=== PATIENT | female | born 1970 | race Caucasian/White ===

== ENCOUNTER 2023-03-24 13:38 | Emergency (ER) | payer BC ==
--- NOTE | 2023-03-24 14:21 | ED Physician Documentation ---
History of Present Illness - Stated complaint Stated Complaint: DIZZINESS,LIGHTHEADED - Chief complaint Chief Complaint: Neuro - Additonal information Additional information: 53-year-old female presents to the emergency department with a chief complaint of feeling dizzy, off balance and lightheaded. It occurred suddenly when standing. She has a history of a previous stroke while living in [place] about 1 year ago. She reports to me that it was due to severe uncontrolled hypertension. As a result of that stroke she has right-sided deficits. She is a current 1 pack/day tobacco user. Reports compliance with her atorvastatin, hydrochlorothiazide and lisinopril. She also takes a daily aspirin though inconsistent with use. On presentation in the emergency department she is alert and well-appearing. Her NIHSS at the time of initial evaluation is 0. She is denying any chest pain or shortness of air. Review of Systems Constitutional: denies: Fever, Chills Cardiac: reports: Other (light headed). denies: Chest pain / pressure, Palpitations Respiratory: denies: Dyspnea, Cough GI: reports: Reviewed and negative : reports: Reviewed and negative Skin: reports: Reviewed and negative Musculoskeletal: reports: Reviewed and negative Neurologic: reports: Focal weakness (mild right arm/right leg weakness at baseline). denies: Generalized weakness, Confused, Headache, Head injury, LOC PD PAST MEDICAL HISTORY - Allergies Allergies/Adverse Reactions: Allergies Allergy/AdvReac Type Severity Reaction Status Date / Time No Known Drug Allergies Allergy Verified 03/24/23 13:45 PD ED PE NORMAL - General General: Alert and oriented X 3, No acute distress. No: Well devel oped/nourished (markedly obese) - HEENT HEENT: EOMI (no nystagmus), Moist mucous membranes - Neck Neck: Supple, no meningeal sign - Cardiac Cardiac: RRR, No murmur - Respiratory Respiratory: No respiratory distress, Clear bilaterally - Abdomen Abdomen: Normal bowel sounds, Soft, Non tender - Back Back: No CVA TTP, No spinal TTP - Derm Derm: Normal color - Extremities Extremities: No deformity - Neuro Neuro: Alert and oriented X 3, bisque grader 2-12 intact Eye Opening: Spontaneous Motor: Obeys Commands Verbal: Oriented GCS Score: 15 Results - Vitals Vitals: Vital Signs - 24 hr 03/24/23 03/24/23 03/24/23 13:45 14:39 14:55 Temperature 36.5 C Heart Rate 70 69 Heart Rate [ 70 Sitting] Heart Rate [ 80 Standing] Heart Rate [ 60 Supine] Respiratory 16 24 Rate Blood Pressure 117/65 92/65 Blood Pressure 112/59 L [Sitting] Blood Pressure 109/80 [Standing] Blood Pressure 94/48 L [Supine] O2 Saturation 96 99 Oxygen O2 Source Room air - EKG (time done) 1422 EKG releavant findings:: EKG personally interpreted by author of this note. Relevant findings are: Rate: Rate (enter#) (62) Rhythm: NSR Rossiter: Normal Intervals: Normal NE QRS: Low voltage Ischemia: Normal ST segments Compare to prior EKG: Old EKG unavailable Computer interpretation: Agree with computer - Labs Labs: Laboratory Tests 03/24/23 03/24/23 14:36 14:36 WBC 8.7 RBC 4.94 Hgb 15.3 Hct 46.5 MCV 94.1 MCH 31.0 MCHC 32.9 RDW 13.2 Plt Count 365 MPV 9.9 Neut # (Auto) 6.0 Lymph # (Auto) 1.8 [place] # (Auto) 0.7 Eos # (Auto) 0.1 Baso # (Auto) 0.0 Absolute Nucleated RBC 0.00 Nucleated RBC % 0.0 Sodium 136 Potassium 3.7 Chloride 102 Carbon Dioxide 28 Anion Gap 6.0 BUN 19 Creatinine 1.2 Estimated GFR (MDRD) 47 L Glucose 94 Calcium 9.8 Total Bilirubin 0.4 AST 22 ALT 17 Alkaline Phosphatase 71 Troponin I High Sens 3.1 Total Protein 6.9 Albumin 4.1 Globulin 2.8 Albumin/Globulin Ratio 1.5 Lipase 21 - Rads (name of study) cxr Relevant Findings:: Final report received (No acute cardiopulmonary process) angio head/neck Relevant Findings:: Final report received (Unremarkable CT angio of the head and neck. No evidence of large vessel occlusion, aneurysm or vascular malformation.) Ct head Relevant Findings:: Final report received (Old left basal ganglia lacunar infarction) PD Medical Decision Making - ED course Complexity details: reviewed results, re-evaluated patient, d/w patient ED course: 53-year-old female presented to the emergency department for evaluation of sudden severe lightheaded and dizziness. She felt that she was having increased weakness on her right side. Did have a history of a stroke 1 year ago while living in [place]. Reports to me it was due to high blood pressure. Presentation to the emergency department she was alert and well-appearing. Her blood pressure however was lower than would be expected given her history initially 94/48. She was without fever or tachycardia. Her NIHSS was 0 on exam. But given the preceding history we did order angios of the head and neck. I also ordered an EKG CBC and electrolytes. Per my interpretation no acute electrolyte derangement or abnormality in the CBC. CT angios were completed and pending however the patient chose to elope from the emergency department if she wanted to have a cigarette. We had evaluated her orthostatic blood pressures here in the emergency department and though she was not orthostatic per se her blood pressures were lower than would be expected given her age and condition. I suspect some of the symptoms are likely related to hypotension. Because the patient could not be convinced to stay I encouraged her to hold her dose of lisinopril over the next few days and recheck her blood pressures at home. The results of the angios are pending though I do not anticipate they will show any acute abnormalities. If they are grossly abnormal patient will be notified to return to the ER. She did leave AGAINST MEDICAL ADVICE. 1715: CT angio of the head and neck has been resulted and shows no acute vascular malformations aneurysm dissection or occlusion. CT of the head without contrast showed an old left basal ganglier infarct consistent with the patient's right-sided symptoms that have been persistent for more than a year after her stroke. At this time she remains discharged AGAINST MEDICAL ADVICE. She was notified that she could return at any time should she choose to without repercussion or questions asked. Departure - Departure Disposition: 07 Against Medical Advice Clinical Impression: Light headed, History of stroke Forms: PCP List Discharge Date/Time: 03/24/23 16:55 NIHSS - Time Time: 14:15 - Level of Consciousness Level of consciousness: (0) Alert, Keenly responsive LOC Questions: (0) Answers both Q's correct LOC Commands: (0) Performs both correctly - Gaze Best Gaze: (0) Normal - Visual Visual: (0) No loss - Facial Palsy Facial Palsy: (0) Normal, symmetrical movement - Motor Arms (both separate) Motor Arm (right): (0) No drift Motor Arm (left): (0) No drift - Motor Legs (both separate) Motor Leg (right): (0) No drift Motor Leg (left): (0) No drift - Limb Ataxia Limb Ataxia: (0) Absent - Sensory Sensory: (0) Normal - Best Language Best Language: (0) No aphasia - Dysarthria Dysarthria: (0) Normal - Extinction and Inattention (formally neg Extinction and inattention: (0) No abnormality - Total Score/Results Total Score/Result: 0
[2023-03-24 14:47] VITALS: O2SAT 99
[2023-03-24 14:49] LABS: BASOPHILS % (AUTO) 0.5 %; EOSINOPHILS # (AUTO) 0.1 10^3/uL (0.0-0.7); HCT - HEMATOCRIT 46.5 % (37.0-47.0); HGB - HEMOGLOBIN 15.3 g/dL (12.0-16.0); LYMPHOCYTES # (AUTO) 1.8 10^3/uL (1.5-3.5); LYMPHOCYTES % (AUTO) 20.7 %; MEAN CORPUSCULAR HGB CONC 32.9 g/dL (32.0-36.0); MEAN CORPUSCULAR VOLUME 94.1 fL (81.0-99.0); MEAN PLATELET VOLUME 9.9 fL (7.9-10.8); MONOCYTES # (AUTO) 0.7 10^3/uL (0.0-1.0); MONOCYTES % (AUTO) 7.9 %; NEUTROPHILS % (AUTO) 69.6 %; PLT - PLATELET COUNT 365 10^3/uL (130-450); RED BLOOD COUNT 4.94 10^6/uL (4.20-5.40); RED CELL DISTRIBUTION WIDTH 13.2 % (12.0-15.0); WHITE BLOOD COUNT 8.7 x10^3/uL (4.8-10.8)
[2023-03-24 14:57] VITALS: BP 94/48
--- NOTE | 2023-03-24 15:17 | XRAY Report ---
PROCEDURE: Chest 1 View X-Ray INDICATIONS: Chest Pain TECHNIQUE: One view of the chest was acquired. COMPARISON: None. FINDINGS: Surgical changes and devices: None. Lungs and pleura: No pleural effusions or pneumothorax. Lungs are clear. Mediastinum: Mediastinal contours appear normal. Heart size is normal. Bones and chest wall: No suspicious bony lesions. Overlying soft tissues appear unremarkable. IMPRESSION: No acute cardiopulmonary process. Reviewed by: Otto Looney on 03/24/2023 3:15 PM PDT Approved by: Otto Looney on 03/24/2023 3:15 PM PDT Station ID: [id number]
[2023-03-24 15:18] LABS: TROPONIN I HIGH SENSITIVITY 3.1 ng/L (2.3-14.8)
[2023-03-24] MEDS ORDERED: SODIUM CHLORIDE 0.9% 1,000 ML IV STA (15:21)
[2023-03-24 15:29] LABS: ALBUMIN 4.1 g/dL (3.2-5.5); ALBUMIN/GLOBULIN RATIO 1.5 (1.0-2.2); BILIRUBIN,TOTAL 0.4 mg/dL (0.2-1.0); CALCIUM 9.8 mg/dL (8.5-10.3); CREATININE 1.2 mg/dL (0.6-1.3); POTASSIUM 3.7 mmol/L (3.5-4.5); TOTAL PROTEIN 6.9 g/dL (6.4-8.9)
--- NOTE | 2023-03-24 17:13 | CT Report ---
PROCEDURE: CT Angio Head/Neck INDICATIONS: dizzy, light headed; previous cva with r deficiits TECHNIQUE: Helical axial CT of the head and neck was obtained during the arterial phase of a intrave nous contrast injection utilizing an angiographic protocol. Multiplanar traditional and MIP reformat s were also obtained. COMPLIANCE STATEMENTS: Any estimate of proximal ICA stenosis was calculated using NASCET guidelines. Dose reduction techniques included either automated exposure control or adjustment of exposure sharri eters. COMPARISON: None. FINDINGS: Image quality: Study limited by motion artifact particularly in the skull base. Patient shoulders cre atse beam hardening artifact limiting assessment of the proximal vessels Cerebral CT Angiogram: Internal carotid arteries: No acute findings. Intracranial ICA are patent with no significant steno sis. No occlusion. No aneurysm. Anterior cerebral arteries: Unremarkable. No significant stenosis. No occlusion. No aneurysm. Middle cerebral arteries: Unremarkable. No significant stenosis. No occlusion. No aneurysm. 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 The P2 segment is supplied by a widely patent posterior communicating artery. Remainder of the distal vasculature unremarkable. Basilar artery: Unremarkable. No significant stenosis. No occlusion. No aneurysm. Vertebral arteries: Unremarkable as visualized. Dural venous sinuses: Unremarkable given phase of enhancement. Other: Arterial phase appearance of the brain parenchyma is unremarkable. Neck CT Angiogram: Internal carotid arteries: Unremarkable. No significant stenosis. No dissection or occlusion. Common carotid arteries: Unremarkable. No significant stenosis. No dissection or occlusion. External carotid arteries: Unremarkable. No occlusion. Vertebral arteries: Unremarkable. No significant stenosis. No dissection or occlusion. Aortic Arch and Mediastinum: Partially visualized aortic arch unremarkable without evidence of aneury sm. Origins of the great vessels unremarkable. Other: Arterial phase soft tissues of the neck are unremarkable. Degenerative disc disease and arthro hayder in the cervical spine. IMPRESSION: Unremarkable CT angiogram of the head and neck. No evidence of large vessel occlusion, aneurysm or va scular malformation Study is limited as above Reviewed by: Norm Davis MD on 03/24/2023 4:11 PM AKERIC Approved by: Norm Davis MD on 03/24/2023 4:11 PM AKDT Station ID: [id number]
--- NOTE | 2023-03-24 17:14 | CT Report ---
PROCEDURE: CT brain without contrast INDICATIONS: DIZZY, LIGHT HEADED; PREVIOUSE CVA W/R DEFICITS TECHNIQUE: Helical axial CT of the brain was obtained without contrast and reformatted in multiple p lanes. Radiation dose reduction was achieved using automated exposure control or adjustment of mA and /or kV according to patient size. COMPARISON: None FINDINGS: CSF spaces: Ventricles are appropriate in size and position. No hydrocephalus. Basal cisterns unre markable. Brain: No midline shift. No intracranial masses or hemorrhage. Carroll-white matter interface is norm al. Old infarct noted in the left caudate with volume loss Skull and face: Calvarium and skull base are unremarkable without suspicious lesion. Sinuses: Visualized sinuses and mastoids are clear. IMPRESSION: Old left basal ganglia lacunar infarct Reviewed by: Norm Davis MD on 03/24/2023 4:12 PM AKDT Approved by: Norm Davis MD on 03/24/2023 4:12 PM AKDT Station ID: [id number]
[2023-03-25] MEDS ORDERED: IOVERSOL 320 100 ML VIAL IVP ONE (00:27)
== END 2023-03-24 16:55 | disposition left against medical advice (07) ==
LOC: ED 13:38
DX: R42 Dizziness and giddiness (principal); I69.351 Hemiplegia and hemiparesis following cerebral infarction affecting right dominant side; F17.200 Nicotine dependence, unspecified, uncomplicated; Z53.29 Procedure and treatment not carried out because of patient's decision for other reasons
CPT/HCPCS: 36415; 80053; 83690; 84484; 85025; 93005; 99284

== ENCOUNTER 2023-04-15 12:20 | Emergency (ER) | payer BC, MEDICAID ==
--- NOTE | 2023-04-15 13:16 | XRAY Report ---
PROCEDURE: Hip w/Pelvis 2-3V RT INDICATIONS: pain TECHNIQUE: AP pelvis with lateral view(s) of the right hip(s). COMPARISON: None. FINDINGS: Bones: No fractures or dislocations. No suspicious bony lesions. Mild right hip osteoarthritis with osseous hypertrophy. Lower lumbar spine degenerative disc disease and facet arthropathy. Soft tissues: No suspicious soft tissue calcifications or masses. IMPRESSION: No fracture. No acute osseous lesion. If symptoms and/or clinical concern for pathology persists, fur ther assessment with repeat plain film radiographs (7-10 days) or advanced imaging (CT, MR, bone scan ) should be considered. Mild right hip osteoarthritis. Reviewed by: Avril Abdi MD, PhD on 04/15/2023 1:14 PM PDT Approved by: Avril Abdi MD, PhD on 04/15/2023 1:14 PM PDT Station ID: [id number]
--- NOTE | 2023-04-15 13:19 | ED Physician Documentation ---
PD HPI BACK PAIN - Stated complaint Stated Complaint: RT HIP PX/ - Chief complaint Chief Complaint: Ext Problem - History obtained from History obtained from: Patient - Additional information Additional information: Patient is a 53-year-old female presenting for evaluation of a right lower back pain for the past 1 week that is worse when she first wakes up in the morning as well as at night. She denies any known injury or trauma but has been limping Due to the pain. She has been trying ibuprofen without any improvement. Denies radiation of the pain elsewhere. Denies bowel or bladder incontinence, saddle anesthesia. Denies blood thinner use or procedures or injections to her back. No numbness or tingling. Review of Systems Constitutional: denies: Fever Cardiac: denies: Chest pain / pressure Respiratory: denies: Dyspnea GI: denies: Abdominal Pain, Vomiting : denies: Dysuria, Frequency, Incontinent Musculoskeletal: reports: Back pain Neurologic: denies: Head injury PD PAST MEDICAL HISTORY - Past Medical History Neuro: CVA - Present Medications Home Medications: Ambulatory Orders Medication Instructions Recorded Confirmed Atorvastatin [Lipitor] 20 mg PO DAILY 04/15/23 04/15/23 Cyclobenzaprine [Flexeril] 10 mg PO TID PRN #20 tablet 04/15/23 Lidocaine Patch 5% [Lidoderm Patch] 1 patch TOP DAILY PRN #10 patch 04/15/23 Lisinopril [Zestril] 20 mg PO DAILY 04/15/23 04/15/23 - Allergies Allergies/Adverse Reactions: Allergies Allergy/AdvReac Type Severity Reaction Status Date / Time No Known Drug Allergies Allergy Verified 04/15/23 12:43 - Social History Does the pt smoke?: No Smoking Status: Never smoker PD ED PE NORMAL - General General: Alert and oriented X 3, No acute distress, Well developed/nourished - HEENT HEENT: Atraumatic, Moist mucous membranes, Pharynx benign - Neck Neck: Supple, no meningeal sign - Cardiac Cardiac: RRR, No murmur, Strong equal pulses - Respiratory Respiratory: No respiratory distress - Back Back: No spinal TTP, Other (Mild left lower lumbar tenderness to palpation, no deformities or bruising) - Derm Derm: Warm and dry - Extremities Extremities: No deformity, No tenderness to palpate, Normal ROM s pain - Neuro Neuro: Alert and oriented X 3, No motor deficit, No sensory deficit, Normal speech Results - Vitals Vitals: Vital Signs - 24 hr 04/15/23 04/15/23 12:33 13:32 Temperature 36.2 C L Heart Rate 88 80 Respiratory 18 20 Rate Blood Pressure 156/101 H 148/100 H O2 Saturation 95 99 Oxygen O2 Source Room air PD Medical Decision Making - ED course Complexity details: reviewed results, re-evaluated patient, d/w patient ED course: Patient is a 53-year-old female presenting for evaluation of right lower back pain. No recent injuries or falls. lens matcher had requested a hip x-ray as patient was limping. I did place a hip x-ray but once patient was able to be examined it appears that her pain is more in the lower back than truly in the hip. Her hip is negative for fracture dislocation but does show some osteoarthritis. She does have an area of point tenderness to the lower back. No symptoms to suggest cauda equina. It no symptoms to suggest pyelonephritis, UTI, kidney stone. Discussed trial of supportive care including lidocaine patches and muscle relaxers. Patient counseled on need for close follow-up with PCP as well as concerning symptoms to return for. Departure - Departure Disposition: 01 Home, Self Care Clinical Impression: Low back strain Condition: Stable Instructions: ED Sprain Strain Lumbar Prescriptions: Cyclobenzaprine [Flexeril] 10 mg PO TID PRN #20 tablet PRN Reason: Spasms Lidocaine Patch 5% [Lidoderm Patch] 1 patch TOP DAILY PRN #10 patch PRN Reason: pain Comments: You were evaluated for right lower back pain. As you are limping a right hip x- ray was performed which shows no broken or out of place bones but you do have mild osteoarthritis. I sent prescriptions to [facility] to help with managing your symptoms including lidocaine patches and a muscle relaxer. It is imperative that you establish care with a primary care provider, not only for follow-up for this condition but also for your underlying medical conditions. Please return to the emergency department with any worsening symptoms. Forms: PCP List Discharge Date/Time: 04/15/23 13:33
[2023-04-15 13:37] VITALS: BP 148/100; O2SAT 99
== END 2023-04-15 13:33 | disposition home or self-care (01) ==
LOC: ED 12:20
DX: S39.012A Strain of muscle, fascia and tendon of lower back, initial encounter (principal); X58.XXXA Exposure to other specified factors, initial encounter; M16.11 Unilateral primary osteoarthritis, right hip
CPT/HCPCS: 99283

== ENCOUNTER 2024-04-03 14:55 | Outpatient (CLI) | payer OTHER ==
--- NOTE | 2024-04-03 15:56 | SLEEP CARE CONSULTATION ---
Information from patient questionnaire entered by Chad Mcbride. I have reviewed and concur with the information entered by Chad Mcbride. This document represents the service I personally performed and the decisions made by me, Obey Wood MD, [facility]. History of Present Illness Service Date and Time: 04/03/2024 1455 Reason for Visit: New patient Chief Complaint: reports: Unrefreshed sleep, Snoring, Observed pauses in breathing, Frequent awakenings at night Date of Onset: Over 1 year Usual bedtime: 8 PM Time it takes to fall asleep: 15 - 20 mins Snores at night: Yes Observed to quit breathing while asleep: Yes Sleeps alone due to snoring: No (but wants to) Number of times waking at night: 3 - 4 times Reasons for waking at night: reports: Bathroom, Other (Unknown reason) Toss, Turn, or Twitch while sleeping: Yes Recalls having dreams: No Usually gets out of bed at: 6 AM Feels refreshed in the morning: No Morning headache: No Sleepy or fatigued during the day: Yes Ever fallen asleep while driving: No Takes day naps: No Prior sleep studies: Yes Year and Where: 12/29/22 [facility] in [place] Additional HPI information: I have the pleasure of seeing Ms. Evans today regarding the possibility of her having obstructive sleep apnea. As you know, she is a 54-year-old lady who complains of frequent awakenings, unrefreshed sleep, loud snore, and observed apneas. She had a sleep study last year in [place] but was told that the study was inconclusive and she should have another one. The patient tells me that she normally goes to bed around 8 pm, and it takes her approximately 15 - 20 minutes to fall asleep. She has been told that she snores loudly and irregularly at night. She has also been observed to stop breathing in her sleep. She can recall waking up on the average of 3 - 4 times during the night. Most of the time she wakes up because of unknown reason. She has awakened occasionally because of her own snoring, choking, and having to gasp for air. There is a lot of tossing and turning in her sleep. She reports somniloquy (sleep talking) but not somnambulism (sleep walking). Generally, there is no recollection of dreams. In the morning she usually gets up out of bed around 6 a.m. not feeling refreshed nor rested. She usually does not have a morning headache. During the day she complains of feeling sleepy and fatigued. Her score on [place] Sleepiness Scale is 11 out of 24. She never has fallen asleep while driving nor has had any accident due to sleepiness. She usually does not take naps during the day. Upon falling asleep during the day she denies having vivid dreams. She has never had sleep paralysis, experienced cataplexy or symptoms of restless leg syndrome. She denies having impaired concentration during the day. - Parasomnia Symptoms Ever been unable to move upon waking from sleep: No Walks in sleep: No Talks in sleep: Yes Ever acted out dreams in sleep: No Ever felt weak in the knees when startled or emotional: No Bothered by creepy, crawly, restless sensations in legs: No Problems with memory or concentration: No Subjective Initial [place] Sleepiness Scale score: 11 (04/03/24) Past Medical History Past Medical History: reports: Hypertension, Stroke (I had a stroke 2 years ago. Ever since I have been on meds- Losartan Potassium/HCTZ 12.5 mg), Arthritis, Other Social History The patient is a caregiver. Patient is and lives in [place]. Have you smoked in the past 12 months: Yes Cigarettes per day (20/pack): 15 Years of smokin Smoking Pack Years: 28.7 Alcohol use: No Caffeine use: Yes Caffeine amount and frequency: 1 cup evrey morning Family History Family history of sleep disordered breathing: No Allergies and Home Medications Known drug allergies: No Drug allergies reviewed: Yes Home medication list reviewed: Yes Allergy and home medication list: Allergies No Known Drug Allergies Allergy (Verified 04/15/23 12:43) Review of Systems Weight gain over past 5 years: 80 Cardiovascular: reports: high blood pressure Respiratory: denies: shortness of breath, wheeze, sputum production, chronic cough, other Gastrointestinal: denies: heartburn, difficulty swallowing, nausea, vomitting, diarrhea, abdominal pain, other Urinary: reports: frequency (Up to 2 - 3 times at night) Neurological: denies: headaches, seizure, head trauma, disorientation, speech dysfunction, gait or balance problems, fainting or unconsciousness, other Psychiatric: denies: Attention Deficit Hyperactivity, anxiety, depression, mood disorder, claustrophobia, other Ear/Nose/Throat: reports: wisdom teeth removed Endocrine: denies: thyroid disease, history of goiter, sluggishness, too hot or cold, excessive thirst, increased appetite, increased urination, unexplained weakness, other Musculoskeletal: reports: joint pain (/stiffness), back pain, mobility problems Immunologic: denies: sneezing, rash, itching, allergies to food or environment, other Physical Exam Height: 5 ft 3.5 in Weight: 126 lb 4.48 oz Body Mass Index: 22.0 BMI Classification: Normal Mood/affect: normal HEENT: No craniofacial malformation Nostrils: patent to airflow Turbinates: normal Septum: midline Mouth and throat: narrow oropharynx Soft palate: long Hard palate: normal Uvula: normal Uvula visualization: 25% Mallampati Class III Tongue: normal in size Tonsils: small Chin and jaw: normal size and position Neck: normal w/o lymphadenopathy or thyromegaly Heart: regular rate and rhythm Lungs: clear bilaterally Extremities: no edema or clubbing Neurologic: intact Impression and Plan IMPRESSION: 1. Obstructive Sleep Apnea-Hypopnea Syndrome, as evident by history of loud and irregular snoring, observed cessation of breath while asleep, frequent awakenings during the night, unrefreshed sleep, and daytime hypersomnolence. Narrow oropharynx and obesity are common predisposing factors for obstructive sleep apnea-hypopnea syndrome. She also has two comorbiditieshypertension and stroke. I recommend proceeding to polysomnography to confirm the diagnosis and to assess severity. If she has significant sleep disordered breathing, a manual CPAP titration study will also be performed to find the optimal treatment pressure. I informed the patient of what the sleep studies involve and after some discussion, she agreed to proceed. Plan: 1. Schedule polysomnography +/- manual CPAP titration study and return in 1 to 2 weeks after the study to discuss result and initiate therapy. 2. Avoid long distance driving or when feeling sleepy. 3. Avoid alcohol, sedatives, and muscle relaxants around bedtime. 4. Attempt to lose weight. Counseling Topics: Weight control Follow up with Sleep Care in: 1-2 months Follow up recommended for: Weight management Visit Type: In Office Time Spent with Patient (minutes): 15 Provider Statement: I spent 100% of the Face to Face Visit with the patient with greater than 50% spent counseling the patient and coordination of care.
== END 2024-04-03 14:56 | disposition home or self-care (01) ==
LOC: SC 14:55
PROVIDERS: ATTEND Internal Medicine Pulmonary Disease
DX: G47.8 Other sleep disorders (principal); G47.10 Hypersomnia, unspecified; R06.83 Snoring; R06.81 Apnea, not elsewhere classified; F17.210 Nicotine dependence, cigarettes, uncomplicated; I10 Essential (primary) hypertension; Z86.79 Personal history of other diseases of the circulatory system
CPT/HCPCS: 99202; 99212